=== PATIENT | male | born 1940 | race Caucasian/White ===

== ENCOUNTER 2017-11-13 19:51 | Emergency (ER) | payer MEDICARE, OTHER ==
[~2017-11-13] VITALS: Ht 177.8 cm; Wt 129.3 kg
[2017-11-13] MEDS ORDERED: PLAVIX75 MG PO (20:07)
[2017-11-13] MEDS ORDERED: LISINOPRIL5 MG (20:07)
[2017-11-13] MEDS ORDERED: LASIX20 MG (20:08)
[2017-11-13] MEDS ORDERED: ASPIR-LOW81 MG PO (20:08)
[2017-11-13] MEDS ORDERED: METFORMIN HCL1000 M1 (20:09)
[2017-11-13] MEDS ORDERED: ALLOPURINOL100 MG (20:19)
[2017-11-13] MEDS ORDERED: ALLERGY10 MG (20:19)
[2017-11-13] MEDS ORDERED: PRAVACHOL20 MG (20:20)
[2017-11-13] MEDS ORDERED: K-TAB ER20 MEQ (20:20)
[2017-11-13] MEDS ORDERED: FLOMAX0.4 MG PO (20:21)
[2017-11-13] MEDS ORDERED: HUMALOG100 UNIT/1 (20:21)
--- NOTE | 2017-11-13 21:01 | EKG ---
[facility] [address] [facility] [place] [address] Signed Normal sinus rhythm Septal infarct , age undetermined Abnormal ECG No previous ECGs available Confirmed by ABDI LAGUNAS MD ([id number] on 11/13/2017 9:01:34 PM Electronically Signed By: ABDI LAGUNAS MD 11/13/172100 PATIENT NAME: KENYATTA DOUGHERTY Electrocardiogram DATE OF : 42 PHYSICIAN: ABDI LAGUNAS MD REPORT #: [id number] REPORT IS CONFIDENTIAL AND NOT TO BE RELEASED WITHOUT AUTHORIZATION
[2017-11-13] MEDS ORDERED: MOTION RELIEF25 MG PO (23:44)
== END 2017-11-14 00:13 | disposition home or self-care (01) ==
LOC: ED 19:51
DX: R42 Dizziness and giddiness (principal); D64.9 Anemia, unspecified; N28.9 Disorder of kidney and ureter, unspecified; E11.9 Type 2 diabetes mellitus without complications; J45.909 Unspecified asthma, uncomplicated; I25.2 Old myocardial infarction; Z87.891 Personal history of nicotine dependence; Z79.899 Other long term (current) drug therapy; Z79.01 Long term (current) use of anticoagulants; Z79.82 Long term (current) use of aspirin; Z79.4 Long term (current) use of insulin
CPT/HCPCS: 73502; 80053; 83605; 84484; 85025; 93005; 93010; 99284